=== PATIENT | male | born 1970 | race Caucasian/White ===

== ENCOUNTER 2016-11-04 20:32 | Emergency (ER) | payer OTHER ==
[~2016-11-04] VITALS: Ht 177.8 cm; Wt 127.9 kg
[~2016-11-04 20:32] MED LIST: ANAPROX DS550 M1 PO; VICODIN,LORT1 TABLET PO
[2016-11-04 21:39] LABS: HEMATOCRIT 39.5 % (38.0-50.0); MCH 28.6 PG (29.0-34.0); MCHC 33.7 G/DL (30.0-36.0); MCV 84.9 FL (86-99); MEAN PLAT.VOLUME 10.9 uM^3 (9.0-12.4); PLATELET COUNT 274 K/uL (156-360); RBC DIS.WIDTH-CV 13.2 % (11.8-14.6); RBC DIS.WIDTH-SD 40.4 % (39-53); RED BLOOD COUNT 4.65 M/uL (4.00-5.50); WHITE BLOOD COUNT 7.5 K/uL (4.1-10.2)
[2016-11-04 21:53] LABS: INTER. NORMALIZED RATIO 1.1; PROTHROMBIN TIME 11.5 (9.2-11.2); PTT 26.3 (25-32)
[2016-11-04 21:55] LABS: CHLORIDE 104 mEq/L (99-109); POTASSIUM 3.8 mEq/L (3.7-5.4); SODIUM 140 mEq/L (136-147)
[2016-11-04 21:57] LABS: GLUCOSE 98 mg/dL (70-99)
[2016-11-04 21:58] LABS: ANION GAP 12 MEQ/L (2-14)
[2016-11-04 22:01] LABS: GFR ESTIMATE (CALCULATED) > 59 mL/min/; UREA NITROGEN (BUN) 21 mg/dL (9-23)
[2016-11-04 22:55] VITALS: BP 147/98
[2016-11-04] MEDS ORDERED: LISINOPRIL20 MG PO (23:04)
== END 2016-11-04 23:06 | disposition home or self-care (01) ==
LOC: EME 20:32
PROVIDERS: Physician Assistant
DX: M79.89 Other specified soft tissue disorders (principal); M79.661 Pain in right lower leg; I10 Essential (primary) hypertension
CPT/HCPCS: 80048; 85027; 85610; 85730; 93971; 99281; 99284